=== PATIENT | female | born 1990 | race Caucasian/White ===

== ENCOUNTER 2019-12-18 07:42 | Outpatient (CLI) | payer BC, SELFPAY ==
[2019-12-18 08:06] LABS: Hematocrit 39.6 % (37.0-47.0); Mean Corpuscular HGB Conc 32.8 g/dl (32-36); Mean Corpuscular Hemoglobin 27.9 pg (26-34); Mean Platelet Volume 8.5 fl (7.4-10.4); Platelet Count Result 230 k/mm3 (150-375); Red Blood Count 4.66 M/mm3 (4.2-5.4); Red Cell Distribution Width 13.8 % (11.5-14.5); White Blood Count 4.8 K/mm3 (4.5-10.0)
[2019-12-18 08:21] LABS: Alanine Aminotransferase 28 U/L (4-35); Albumin Level 4.3 g/dL (3.5-5.1); Alkaline Phosphatase 55 U/L (38-126); Aspartate Amino Transferase 22 U/L (14-36); Bilirubin,Total 0.3 mg/dL (0.2-1.3); Blood Urea Nitrogen 13 mg/dL (7-17); Calcium 8.6 mg/dL (8.4-10.2); Carbon Dioxide 27 mmol/L (22-30); Chloride 104 mmol/L (98-107); Cholesterol 153 mg/dL (0-200); Estimated Glomerular Filt Rate > 60; Glucose 95 mg/dL (65-105); HDL Direct 43 mg/dL; Potassium 4.1 mmol/L (3.4-5.0); Sodium 139 mmol/L (137-145); Triglycerides 84 mg/dL (<150)
[2019-12-18 08:47] LABS: LDL Cholesterol Direct 79 mg/dL
[2019-12-18 09:28] LABS: Folic Acid 8.8 ng/mL (2.76->20)
[2019-12-18 15:55] LABS: Vitamin D 25 Hydroxy 31.4 ng/mL
== END 2019-12-18 07:43 | disposition home or self-care (01) ==
PROVIDERS: PCP Physician Assistant; Visit Provider Physician Assistant
DX: E55.9 Vitamin D deficiency, unspecified (principal); Z00.00 Encounter for general adult medical examination without abnormal findings
CPT/HCPCS: 36415; 80053; 80061; 82306; 82607; 82746; 84443; 85027

== ENCOUNTER 2020-12-25 06:59 | Outpatient (CLI) | payer BC, SELFPAY ==
[2020-12-25 07:35] LABS: Hematocrit 40.8 % (37.0-47.0); Hemoglobin 13.3 g/dL (12.0-15.0); Mean Corpuscular HGB Conc 32.6 g/dl (32-36); Mean Corpuscular Hemoglobin 28.1 pg (26-34); Mean Corpuscular Volume 86.1 fl (80-100); Mean Platelet Volume 8.6 fl (7.4-10.4); Platelet Count Result 230 k/mm3 (150-375); Red Blood Count 4.74 M/mm3 (4.2-5.4); Red Cell Distribution Width 12.8 % (11.5-14.5); White Blood Count 5.6 K/mm3 (4.5-10.0)
[2020-12-25 08:11] LABS: Alanine Aminotransferase 32 U/L (4-35); Albumin Level 4.2 g/dL (3.5-5.1); Alkaline Phosphatase 48 U/L (38-126); Anion Gap 9 mmol/L (8-16); Aspartate Amino Transferase 36 U/L (14-36); Bilirubin,Total 0.3 mg/dL (0.2-1.3); Blood Urea Nitrogen 11 mg/dL (7-17); Calcium 8.9 mg/dL (8.4-10.2); Carbon Dioxide 26 mmol/L (22-30); Chloride 104 mmol/L (98-107); Cholesterol 148 mg/dL (0-200); Estimated Glomerular Filt Rate > 60; Glucose 90 mg/dL (65-110); HDL Direct 41 mg/dL; Potassium 4.3 mmol/L (3.4-5.0); Sodium 139 mmol/L (137-145); Triglycerides 67 mg/dL (<150)
[2020-12-25 08:23] LABS: LDL Cholesterol Direct 72 mg/dL
[2020-12-25 09:11] LABS: Vitamin D 25 Hydroxy 33.8 ng/mL
[2020-12-25 12:38] LABS: Folic Acid 9.2 ng/mL (2.76->20)
== END 2020-12-25 07:00 | disposition home or self-care (01) ==
PROVIDERS: PCP Physician Assistant; Visit Provider Physician Assistant
DX: Z00.00 Encounter for general adult medical examination without abnormal findings (principal); E55.9 Vitamin D deficiency, unspecified
CPT/HCPCS: 36415; 80053; 80061; 82306; 82607; 82746; 84443; 85027

== ENCOUNTER 2021-03-16 10:56 | Outpatient (RCR) | payer BC, SELFPAY ==
[2021-03-16 11:09] VITALS: BMI 36.2
== END 2021-06-11 11:13 | disposition home or self-care (01) ==
LOC: ANHDMC 10:56
PROVIDERS: PCP Physician Assistant; Visit Provider Internal Medicine
DX: E66.9 Obesity, unspecified (principal); Z71.3 Dietary counseling and surveillance
CPT/HCPCS: 97802

== ENCOUNTER 2022-01-19 06:53 | Outpatient (CLI) | payer BC, SELFPAY ==
[2022-01-19 07:17] LABS: Basophils Absolute Auto 0.1 K/mm3 (0.0-0.1); Basophils Percent Auto 0.7 % (0.2-1.2); Eosinophils Absolute Auto 0.2 K/mm3 (0-0.3); Eosinophils Percent Auto 2.7 % (0-4.4); Hematocrit 42.1 % (37.0-47.0); Hemoglobin 13.2 g/dL (12.0-15.0); Immature Granulocyte Absolute 0.04 K/mm3 (0.00-0.031); Immature Granulocyte Percent A 0.6 % (0-0.5); Lymphocytes Absolute Auto 2.09 K/mm3 (0.9-3.2); Lymphocytes Percent Auto 30.2 % (18.3-44.2); Mean Corpuscular HGB Conc 31.4 g/dl (32-36); Mean Corpuscular Hemoglobin 27.8 pg (26-34); Mean Corpuscular Volume 88.6 fl (80-100); Mean Platelet Volume 8.5 fl (7.4-10.4); Monocytes Absolute Auto 0.6 K/mm3 (0.1-0.6); Neutrophils Percent Auto 57.8 % (45.5-73.1); Platelet Count Result 281 k/mm3 (150-375); Red Blood Count 4.75 M/mm3 (4.2-5.4); Red Cell Distribution Width 13.2 % (11.5-14.5); White Blood Count 6.9 K/mm3 (4.5-10.0)
[2022-01-19 07:34] LABS: Alanine Aminotransferase 25 U/L (6-35); Albumin Level 4.2 g/dL (3.5-5.1); Alkaline Phosphatase 57 U/L (38-126); Anion Gap 7 mmol/L (8-16); Aspartate Amino Transferase 21 U/L (14-36); Bilirubin,Total 0.3 mg/dL (0.2-1.3); Blood Urea Nitrogen 13 mg/dL (7-17); Calcium 8.8 mg/dL (8.4-10.2); Carbon Dioxide 29 mmol/L (22-30); Chloride 100 mmol/L (98-107); Cholesterol 162 mg/dL (0-200); Estimated Glomerular Filt Rate > 60; Glucose 95 mg/dL (65-110); HDL Direct 42 mg/dL; Potassium 4.1 mmol/L (3.4-5.0); Sodium 136 mmol/L (137-145); Triglycerides 119 mg/dL (<150)
[2022-01-19 07:46] LABS: LDL Cholesterol Direct 75 mg/dL
[2022-01-19 08:40] LABS: Folic Acid 9.3 ng/mL (2.76->20)
== END 2022-01-19 06:54 | disposition home or self-care (01) ==
PROVIDERS: PCP Physician Assistant; Visit Provider Physician Assistant
DX: Z00.00 Encounter for general adult medical examination without abnormal findings (principal)
CPT/HCPCS: 36415; 80053; 80061; 82607; 82746; 84443; 85025

== ENCOUNTER 2022-04-11 12:59 | Emergency (ER) | payer BC, SELFPAY ==
--- NOTE | ~2022-04-11 | XR_ITS ---
EXAMINATION: XR finger 5th LT min 2V DATE: 04/11/2022 13:53 INDICATION: Left hand fifth digit pain. TECHNIQUE: 3 views of left hand fifth digit were obtained. COMPARISON: None. FINDINGS: Bone alignment is normal. No fracture. Joint spaces are normal. There is heterotopic ossifi cation radial to neck of fifth proximal phalanx. IMPRESSION: 1. No fracture. Reviewed, dictated and finalized at location A. N RESOURCES EXECUTIVE IMPRESSION: 1. No fracture.
[2022-04-11 13:08] VITALS: BP 117/84; PULSE 76; RESP 14; TEMP 37.7; O2SAT 100
--- NOTE | 2022-04-11 13:36 | ED.UPPEXIN ---
HPI - Extremity Injury (Upper) General Chief Complaint: Extremity Injury, Upper Stated Complaint: lt hand pinky finger swelling/pain Time Seen by Provider: 04/11/22 13:37 Source: patient Mode of arrival: ambulatory Limitations: no limitations History of Present Illness HPI narrative: 31 y/o female presented for c/o left little finger pain and swelling. Stated that she first noted mild stiffness to the left little finger about two weeks ago and then today she woke up and her finger was mildly swollen and painful. Patient states that it hurts to bend her finger with 4-5/10 pain. Denies any known injury to her finger. Denies redness or bruising. Denies any hx of similar s/s. Patient has not taken anything for pain. Related Data Home Medications Medication Instructions Recorded Confirmed No Home Medications 12/19/20 01/02/22 Allergies Allergy/AdvReac Type Severity Reaction Status Date / Time cefaclor Allergy Mild Hives Verified 12/31/21 09:23 Review of Systems Review of Systems: CONSTITUTIONAL: Denies body aches, fever, chills CARDIOVASCULAR: Denies chest pain, palpitations, or edema. RESPIRATORY: Denies cough or dyspnea. SKIN: Denies rash, itching, or wounds. MUSCULOSKELETAL:Reports pain, swelling, stiffness left 5th finger All systems reviewed & are unremarkable except as noted in HPI and below PMFSH Past Medical History Medical History Vitamin D deficiency Family History Family History Mother Patient's mother is in good health Father Patient's father is in good health Social History Social History Smoking status: Never smoker Second hand tobacco smoke exposure: No Alcohol intake: current Alcohol use details: occasional Substance use: never Spiritual care concerns: No Comments At time of signature, I have reviewed and agree with nursing past medical, surgical, social and family history unless otherwise noted. Please see nursing chart for further information. There is no relevant family history pertinent to the presenting complaint Exam Narrative: GENERAL: Well-appearing, CHEST: Speaks in full sentences. No respiratory distress. HEART: Regular rate and rhythm. Normal and equal peripheral pulses. EXTREMITIES: Left 5th finger has normal strength and sensation. Decreased range of motion with flexion/extension d/t pain. Mild swelling noted. No redness, ecchymosis, or point tenderness. No open wounds, or obvious deformity; pulse palpable and equal bilaterally, skin warm, dry, pink. Capillary refill less than 3 seconds. Endorses pain with palpation of the left 5th PIP. SKIN: Warm, dry, no rash. NEURO: Alert and oriented x3. Course Course Emergency Course: Patient is aware of diagnosis, understands and agrees to treatment plan. Anticipatory guidance given. Patient agrees to follow-up as directed and is aware of reasons to seek care at the emergency department. Portions of this record may have been created with voice recognition software Level of Care: Express Care Visit Vital Signs Vital signs: Vital Signs Temperature 99.8 F H 04/11/22 13:08 Pulse Rate 76 04/11/22 13:08 Respiratory Rate 14 04/11/22 13:08 Blood Pressure 117/84 04/11/22 13:08 Pulse Oximetry 100 04/11/22 13:08 Oxygen Delivery Room Air 04/11/22 13:08 Temperature 99.8 F H 04/11/22 13:08 Pulse Rate 76 04/11/22 13:08 Respiratory Rate 14 04/11/22 13:08 Blood Pressure 117/84 04/11/22 13:08 Pulse Oximetry 100 04/11/22 13:08 Oxygen Delivery Room Air 04/11/22 13:08 Reviewed MDM - Extremity Injury (Upper) MDM Narrative Medical decision making narrative: Result of xray reviewed with pt. Advised supportive measures and signs/symptoms to go to the ER. Pt is appropriate for outpt treatment and f/u. Differential
== END 2022-04-11 14:11 | disposition home or self-care (01) ==
PROVIDERS: Emergency Provider Nurse Practitioner Family; PCP Physician Assistant
DX: M79.645 Pain in left finger(s) (principal)
CPT/HCPCS: 73140; 99213; G0463

== ENCOUNTER 2022-06-28 07:30 | Outpatient (RCR) | payer BC, SELFPAY ==
--- NOTE | 2022-06-02 09:28 | OTOPEVAL1 ---
Assessment and note entered by Marleni Corral, OTR/L Evaluation Information Assessment Status Evaluation Diagnosis Carpal tunnel syndrome bilateral UE Subjective Information Patient reports carpal tunnel symptoms started in bilateral UE in the summer time with numbness/ tingling and hands feel like they are falling asleep . Patient reports the numbness is only noticeable at night time which wakes patient up throughout the night. Patient has a wrist cock up orthosis for dominant R UE and plans to get one for L UE. Reported Pain Level Pain Score 0,0: Self Report Assessment OT Clinical Summary Vivi is a 31 year old R hand dominant female who presents to Outpatient OT with complaint of median nerve compression symptoms of bilateral UE's. Patient reports numbness/tingling when sleeping that is waking patient up throughout the night. Patient has bilateral UE positive phalnes test and compression test over carpal tunnel indicating median nerve compression symptoms. Today we discussed use of wrist cock up orthosis patient has with a wearing schedule, Median nerve glides, positioning during daily tasks and sleeping to facilitate the healing of median nerve compression symptoms. We plan to follow up in 2 weeks for a re-assessment of her progress. Plan of Care Interventions Therapeutic Exercise,Therapeutic Activities,Self- Care/Home Management,Check Out for Orthotic/Pr OT Services Indicated Yes Treatment Frequency and 0-1x/week, 4 weeks Duration These treatments will address the objective and functional deficits as defined above. The patient will be advanced safely and appropriately in order for the patient to progress towards his/her prior level of function. Additional exercises will be introduced and as well as a comprehensive home exercise program upon discharge, if needed, ?to ensure carryover of functional gains achieved in the clinic. This treatment plan has been reviewed and agreement upon by the patient.
--- NOTE | 2022-06-28 08:06 | OTOPDC ---
Assessment and note entered by Eliazar Moran, ELVISR/Gerhard, CHT Evaluation Information Assessment Status Discharge Diagnosis Carpal tunnel syndrome bilateral UE Subjective Information Patient has been participating in outpatient hand therapy x4 weeks. She has been wearing bilateral carpal tunnel braces at night and been very compliant with ROM/stretching, strengthening, and nerve glide HEP. Vivi reports having several days this week where she hasn't noticed any tingling in her hands. She states she hasn't been woken up by the tingling in over a week. She reports noticing some tinging when she was reading in a prolonged position but states she is more aware of her positioning and needing to move when she feels the onset of tingling. Overall she is reporting good progress with reduction of her symptoms and states she is ready for discharge. Reported Pain Level Pain Score 0: Self Report Additional Pain Score Comments No pain throughout the course of therapy. Assessment OT Clinical Summary Vivi has made excellent progress with her carpal tunnel symptoms. She reports minimal paresthesias in the last week and that she is no longer waking up from the paresthesias. She verbalizes excellent understanding of body mechanics and awareness of prolonged positioning and how it affects nerve compression. [place]Zoey test is normal bilaterally. Phalen's positive on the right only at 45 seconds. Carpal compression test negative bilaterally. 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 Palmar pinch strength decreased slightly and she is independent with putty HEP for this. No further skilled OT indicated at this time. Plan of Care OT Services Indicated No
== END 2022-06-28 10:49 | disposition home or self-care (01) ==
LOC: ANHOT 07:30
PROVIDERS: PCP Physician Assistant; Visit Provider Nurse Practitioner
DX: G56.03 Carpal tunnel syndrome, bilateral upper limbs (principal)
CPT/HCPCS: 97018; 97110; 97140; 97165

== ENCOUNTER 2022-12-02 13:48 | Emergency (ER) | payer BC, SELFPAY ==
[2022-12-02 13:56] VITALS: BP 129/84; PULSE 96; RESP 16; TEMP 37.2; O2SAT 100
--- NOTE | 2022-12-02 13:59 | ED.SKABFB ---
HPI - Skin/Abscess/Foreign Bdy General Chief complaint: Skin/Abscess/Foreign Body Stated complaint: Rash all over Time Seen by Provider: 12/02/22 14:00 Source: patient Mode of arrival: ambulatory Limitations: no limitations History of Present Illness HPI narrative: Esther is a 31-year-old female patient presenting to the clinic today with complaints of a rash all over her torso, bilateral arms, and around her left eye. She reports this rash has been going on for approximately 1 week. Rash is very itchy and raise. No new environmental changes such as soaps, shampoos, detergents, lotions, foods, or medication. Thinks that this may be poison karla as she has been outside and wooded area. Related Data Allergies Allergy/AdvReac Type Severity Reaction Status Date / Time cefaclor Allergy Mild Hives Verified 12/02/22 13:55 Review of Systems Review of Systems: Pertinent positives per HPI. Patient denies any fever, chills, headache, visual changes, dizziness, cough, runny nose, sore throat, shortness of breath, chest pain, palpitations, nausea, vomiting, diarrhea, constipation, abdominal pain, or any urinary issues. [facility] Past Medical History Medical History Vitamin D deficiency Surgical History Surgical History Hx of CONNOR Family History Family History Mother Patient's mother is in good health Diabetes mellitus Father Patient's father is in good health Grandparent Diabetes mellitus Other Breast cancer Lung cancer Ovarian cancer Social History Social History Smoking status: Never smoker Second hand tobacco smoke exposure: No Alcohol intake: current Alcohol use details: occasional Substance use: never Lack of Transportation: No Lack of Food: Never True Current Housing: I Have Housing Concerned About Future Housing: No Difficulty Paying Gas/Electric Bills: No Difficulty Paying for Meds: No Currently Unemployed: No Education: Master's Degree or Higher Difficulty w/ Childcare or Family Care: No Living arrangements: with family Additional occupation/education comments: [employer]- [employer] Spiritual care concerns: No Comments At the time of my signature, I reviewed and agree with the nursing past medical, surgical, social, and family history. There is no relevant family history pertinent to the patient complaint. Exam Narrative: General: Well-developed, obese, in no apparent distress Head: Normocephalic, atraumatic. Cardio: Regular rate and rhythm, s1 and s2 normal, no murmur appreciated. Resp: Clear to auscultation bilaterally, no rhonchi, rales, wheezing or rubs. Integumentary: [place], warm, and dry, intact without lesion, red raised blister like rash to back, abdomen, around left eye, and bilateral forearms Course Course Emergency Course: Portions of this record may have been created with voice recognition software. Level of Care: Express Care Visit Vital Signs Vital signs: Vital Signs Temperature 37.2 C 12/02/22 13:56 Pulse Rate 96 12/02/22 13:56 Respiratory Rate 16 12/02/22 13:56 Blood Pressure 129/84 12/02/22 13:56 Pulse Oximetry 100 12/02/22 13:56 Temperature 37.2 C 12/02/22 13:56 Pulse Rate 96 12/02/22 13:56 Respiratory Rate 16 12/02/22 13:56 Blood Pressure 129/84 12/02/22 13:56 Pulse Oximetry 100 12/02/22 13:56 Vital signs reviewed MDM - Skin/Abscess/Foreign Bdy MDM Narrative Medical decision making narrative: At the time of visit patient is resting on the exam table. I suspect patient has contact dermatitis due to plants. Dexamethasone 10 mg IM given in the clinic today due to rash being around her eye. Supportive measures were discussed with the patient she vo
== END 2022-12-02 14:22 | disposition home or self-care (01) ==
PROVIDERS: Emergency Provider Nurse Practitioner Family; PCP Physician Assistant
DX: L25.9 Unspecified contact dermatitis, unspecified cause (principal)
CPT/HCPCS: 96372; 99213; G0463; J1100

== ENCOUNTER 2023-01-20 07:05 | Outpatient (CLI) | payer BC, SELFPAY ==
[2023-01-20 08:14] LABS: Basophils Percent Auto 0.5 % (0.2-1.2); Eosinophils Absolute Auto 0.2 K/mm3 (0-0.3); Eosinophils Percent Auto 3.4 % (0-4.4); Hematocrit 42.1 % (37.0-47.0); Hemoglobin 13.4 g/dL (12.0-15.0); Immature Granulocyte Absolute 0.02 K/mm3 (0.00-0.031); Immature Granulocyte Percent A 0.4 % (0-0.5); Lymphocytes Absolute Auto 1.63 K/mm3 (0.9-3.2); Lymphocytes Percent Auto 29.1 % (18.3-44.2); Mean Corpuscular HGB Conc 31.8 g/dl (32-36); Mean Corpuscular Hemoglobin 28.2 pg (26-34); Mean Corpuscular Volume 88.6 fl (80-100); Mean Platelet Volume 9.3 fl (7.4-10.4); Monocytes Absolute Auto 0.5 K/mm3 (0.1-0.6); Monocytes Percent Auto 8.4 % (2.6-8.5); Neutrophils Absolute Auto 3.3 K/mm3 (1.3-6.7); Neutrophils Percent Auto 58.2 % (45.5-73.1); Platelet Count Result 270 k/mm3 (150-375); Red Blood Count 4.75 M/mm3 (4.2-5.4); Red Cell Distribution Width 13.5 % (11.5-14.5); White Blood Count 5.6 K/mm3 (4.5-10.0)
[2023-01-20 08:32] LABS: Alanine Aminotransferase 27 U/L (6-35); Albumin Level 4.2 g/dL (3.5-5.1); Alkaline Phosphatase 50 U/L (38-126); Anion Gap 5 mmol/L (8-16); Aspartate Amino Transferase 23 U/L (14-36); Bilirubin,Total 0.5 mg/dL (0.2-1.3); Blood Urea Nitrogen 11 mg/dL (7-17); Calcium 8.7 mg/dL (8.4-10.2); Carbon Dioxide 26 mmol/L (22-30); Chloride 105 mmol/L (98-107); Cholesterol 162 mg/dL (0-200); Estimated Glomerular Filt Rate > 60; Glucose 93 mg/dL (65-110); HDL Direct 47 mg/dL; Potassium 3.9 mmol/L (3.4-5.0); Sodium 136 mmol/L (137-145); Triglycerides 97 mg/dL (<150)
[2023-01-20 08:43] LABS: LDL Cholesterol Direct 83 mg/dL
[2023-01-20 08:56] LABS: Vitamin D 25 Hydroxy 32.9 ng/mL
== END 2023-01-20 07:06 | disposition home or self-care (01) ==
LOC: ANHLAB 07:06
PROVIDERS: PCP Physician Assistant; Visit Provider Physician Assistant
DX: Z00.00 Encounter for general adult medical examination without abnormal findings (principal); E55.9 Vitamin D deficiency, unspecified
CPT/HCPCS: 36415; 80053; 80061; 82306; 84443; 85025

== ENCOUNTER 2023-11-26 08:17 | Emergency (ER) | payer BC, SELFPAY ==
--- NOTE | 2023-11-26 08:20 | ED.SKABFB ---
HPI - Skin/Abscess/Foreign Bdy General Chief complaint: Skin/Abscess/Foreign Body Stated complaint: Rash All Over Time Seen by Provider: 11/26/23 08:19 Source: patient Mode of arrival: ambulatory Limitations: no limitations History of Present Illness HPI narrative: Vivi is a 32 year female patient presenting to the clinic today with complaints of a rash on her left neck, left ear, bilateral antecubital, forearm, bilateral inner thighs, and rash with eye swelling bilaterally. States that the rash is very itchy. Saw her primary care provider 2 days ago and was given prescription for taper dose of prednisone and he told her to take Benadryl/Zyrtec. States that she woke up this morning with some eye swelling and worsening of the rash. Started prednisone taper dose 40 mg 2 days ago-and is decreasing the dose by 5 mg per day. Denies any changes in food, lotions, soaps, shampoos, environment, or medications. Related Data Home Medications Medication Instructions Recorded Confirmed dexmethylphenidate 20 mg 20 mg PO DAILY 11/24/23 11/24/23 capsule,extended release [id number] vilazodone 10 mg tablet 10 mg PO DAILY 11/24/23 11/24/23 Allergies Allergy/AdvReac Type Severity Reaction Status Date / Time cefaclor Allergy Mild Hives Verified 11/24/23 11:53 Review of Systems Review of Systems: Pertinent positives per HPI. Patient denies any fever, chills, headache, visual changes, dizziness, cough, runny nose, sore throat, shortness of breath, chest pain, palpitations, nausea, vomiting, diarrhea, constipation, abdominal pain, or any urinary issues. [facility] Past Medical History Medical History Vitamin D deficiency Surgical History Surgical History Hx of CONNOR Family History Family History Mother Patient's mother is in good health Diabetes mellitus Father Patient's father is in good health Grandparent Diabetes mellitus Other Breast cancer Lung cancer Ovarian cancer Social History Social History Smoking status: Never smoker Second hand tobacco smoke exposure: No Alcohol intake: current Alcohol use details: occasional Substance use: never Lack of Transportation: No Lack of Food: Never True Current Housing: I Have Housing Concerned About Future Housing: No Difficulty Paying Gas/Electric Bills: No Difficulty Paying for Meds: No Currently Unemployed: No Education: Master's Degree or Higher Difficulty w/ Childcare or Family Care: No Living arrangements: with family Additional occupation/education comments: [employer]- [employer] Spiritual care concerns: No Comments At the time of my signature, I reviewed and agree with the nursing past medical, surgical, social, and family history. There is no relevant family history pertinent to the patient complaint. Exam Narrative: General: Well-developed, well nourished, in no apparent distress Head: Normocephalic, atraumatic. Cardio: Regular rate and rhythm, s1 and s2 normal, no murmur appreciated. Resp: Clear to auscultation bilaterally, no rhonchi, rales, wheezing or rubs. Integumentary: [place], warm, and dry, intact without lesion, red raised scaly rash to the bilateral antecubitals, bilateral inner thighs, around her eyes with localized swelling, to the left ear, and to her bilateral forearms Course Course Emergency Course: Portions of this record may have been created with voice recognition software. Level of Care: Express Care Visit Vital Signs Vital signs: Vital signs reviewed MDM - Skin/Abscess/Foreign Bdy MDM Narrative Medical decision making narrative: At the time of visit patient is resting comfortably on the exam table. Patient appears to be nontoxic. Plan: I suspect buck
[2023-11-26 08:23] VITALS: BP 119/55; PULSE 68; RESP 16; TEMP 36.3; O2SAT 97
[2023-11-26] MEDS: dexAMETHasone SOD PHOS INJ 10 MG/ML 1 ML VIAL IM (08:43)
== END 2023-11-26 08:47 | disposition home or self-care (01) ==
PROVIDERS: Emergency Provider Nurse Practitioner Family; PCP Physician Assistant
DX: L30.9 Dermatitis, unspecified (principal)
CPT/HCPCS: 96372; 99213; G0463; J1100

== ENCOUNTER 2024-06-27 13:42 | Outpatient (CLI) | payer BC, SELFPAY ==
--- NOTE | ~2024-06-27 | XR_ITS ---
Bilateral Hands Technique: Bilateral PA, oblique, and lateral views were obtained. Clinical History: Polyarthralgia Findings: No acute fracture or dislocation is seen. Osseous alignment is anatomic. Joint spaces are p reserved. Soft tissues are unremarkable. Impression: Unremarkable bilateral hand radiographs. Reviewed, dictated and finalized at location . [facility] Impression: Unremarkable bilateral hand radiographs.
== END 2024-06-27 13:43 | disposition home or self-care (01) ==
LOC: MICIMG 13:44
PROVIDERS: PCP Internal Medicine; Visit Provider Internal Medicine
DX: R76.8 Other specified abnormal immunological findings in serum (principal); M25.50 Pain in unspecified joint
CPT/HCPCS: 73130

== ENCOUNTER 2024-07-17 11:02 | Outpatient (CLI) | payer BC, SELFPAY ==
--- NOTE | ~2024-07-17 | US_ITS ---
EXAMINATION: US thyroid DATE: 07/17/2024 11:30 INDICATION: Autoimmune thyroiditis. TECHNIQUE: Multiple ultrasound images of the thyroid were obtained. COMPARISON: None. FINDINGS: The right thyroid lobe measures 5.6 x 1.7 x 1.8 cm. The left thyroid lobe measures 5.5 x 1.8 x 1.6 c m. The thyroid demonstrates coarsened echotexture. Vascularity is normal. No discrete nodule. IMPRESSION: 1. Coarsened echotexture of the thyroid, consistent with chronic lymphocytic ([place]) thyroiditis. Reviewed, dictated and finalized at location A. CORDING MIXER IMPRESSION: 1. Coarsened echotexture of the thyroid, consistent with chronic lymphocytic (H ashimoto) thyroiditis.
== END 2024-07-17 11:03 | disposition home or self-care (01) ==
DX: E06.3 Autoimmune thyroiditis (principal)
CPT/HCPCS: 76536